=== PATIENT | male | born 1960 | race Caucasian/White ===

== ENCOUNTER 2021-08-30 14:57 | Observation (INO) | payer OTHER ==
[2021-08-30] MEDS ORDERED: SODIUM CHLORIDE 0.9% 1,000 ML IV STA (16:56)
[2021-08-30] MEDS ORDERED: ALBUTEROL NEBULIZED 2.5 MG/3 ML INHALATION STA (16:57)
[2021-08-30] MEDS ORDERED: IPRATROPIUM-ALBUTEROL 3 ML NEB INHALATION STA (16:57)
--- NOTE | 2021-08-30 17:07 | ED ---
General Adult HPI - General Chief complaint: Dizziness Stated complaint: dizziness, lightheaded Time Seen by Provider: 08/30/21 16:44 Source: patient, RN notes reviewed, old records reviewed Mode of arrival: wheelchair Limitations: no limitations - History of Present Illness Initial comments: 61-year-old male history diabetes on insulin and metformin presenting for evaluation of lightheadedness, generalized weakness. He has had some mild dyspnea and cough. He is a current smoker. He has had very dark urine over the past one week. He states he has been drinking but not eating very well. No significant alcohol. No central chest pain. He has some nausea without vomiting or abdominal pain. - Related Data Home Medications Medication Instructions Recorded Confirmed Aspirin EC [Ecotrin Low Dose] 81 mg PO DAILY 08/30/21 08/30/21 Atorvastatin [Lipitor] 40 mg PO HS 08/30/21 08/30/21 Insulin NPH Human Isophane 22 units SQ DAILY 08/30/21 08/30/21 [NovoLIN N] Insulin NPH Human Isophane 30 units SQ HS 08/30/21 08/30/21 [NovoLIN N] lisinopriL [Zestril] 5 mg PO DAILY 08/30/21 08/30/21 metFORMIN HCL [Glucophage] 1,000 mg PO BID 08/30/21 08/30/21 Allergies Allergy/AdvReac Type Severity Reaction Status Date / Time acetaminophen [From [place]] AdvReac Nausea & Verified 08/30/21 18:20 Vomiting hydrocodone [From [place]] AdvReac Nausea & Verified 08/30/21 18:20 Vomiting Penicillins AdvReac Nausea Verified 08/30/21 18:20 Review of Systems ROS Statement: Those systems with pertinent positive or pertinent negative responses have been documented in the HPI. ROS Other: All systems not noted in ROS Statement are negative. Past Medical History Past Medical History: Diabetes Mellitus History of Any Multi-Drug Resistant Organisms: None Reported Past Surgical History: No Surgical Hx Reported Past Psychological History: No Psychological Hx Reported Smoking Status: Current every day smoker Past Alcohol Use History: None Reported, Daily Past Drug Use History: None Reported General Exam Limitations: no limitations General appearance: alert, in no apparent distress Head exam: Present: atraumatic, normocephalic Eye exam: Present: normal appearance, PERRL ENT exam: Present: mucous membranes dry Neck exam: Present: normal inspection. Absent: tenderness, meningismus Respiratory exam: Present: wheezes. Absent: respiratory distress Cardiovascular Exam: Present: regular rate, normal rhythm GI/Abdominal exam: Present: soft. Absent: distended, tenderness, guarding Extremities exam: Present: normal inspection, normal capillary refill. Absent: pedal edema, calf tenderness Neurological exam: Present: alert, oriented X3, CN II-XII intact. Absent: motor sensory deficit Psychiatric exam: Present: normal affect, normal mood Skin exam: Present: warm, dry, intact. Absent: cyanosis, diaphoretic Course Vital Signs 08/30/21 08/30/21 08/30/21 15:47 17:21 17:33 Temperature 98.5 F Pulse Rate 92 85 84 Respiratory 16 Rate Blood Pressure 72/48 O2 Sat by Pulse 93 L Oximetry - Reevaluation(s) Reevaluation #1: 08/30/21 19:00 UA pending. EKG Findings - EKG Comments: EKG Findings:: EKG: Sinus rhythm PVC rate of 90, DE interval 155, QRS duration 84, QTC 377. Medical Decision Making - Medical Decision Making 60-year-old male presenting with lightheadedness, initial blood pressures in the 70 systolic. He has dry mucous membranes. He states he has been drinking but has not been eating well. He denies alcohol. He denies chest pain. He states he's had very dark urine and some dysuria. Laboratory studies reveal normal CBC, a I, Mild Lactic Acidosis. Urinalysis Pending. Patient's Blood Pressure Does Respond to Initial Liter and Then Subsequently Is in the 80 Systolic. He Will Require Second Liter Hydration. He Will Be Admitted for Close Monitoring of Hypotension, Volume Resuscitation and Evaluation of CAD. Case Discussed with [facility]. - Lab Data Result diagrams: 08/30/21 17:02 08/30/21 17:02 Lab Results 08/30/21 08/30/21 08/30/21 Range/Units 17:02 17:02 17:02 WBC 9.7 (3.8-10.6) k/uL RBC 5.20 (4.30-5.90) m/uL Hgb 16.5 (13.0-17.5) gm/dL Hct 47.5 (39.0-53.0) % MCV 91.3 (80.0-100.0) fL MCH 31.7 (25.0-35.0) pg MCHC 34.7 (31.0-37.0) g/dL RDW 14.0 (11.5-15.5) % Plt Count 140 L (150-450) k/uL MPV 7.9 Neutrophils % 79 % Lymphocytes % 10 % Monocytes % 6 % Eosinophils % 2 % Basophils % 1 % Neutrophils # 7.6 (1.3-7.7) k/uL Lymphocytes # 1.0 (1.0-4.8) k/uL Monocytes # 0.6 (0-1.0) k/uL Eosinophils # 0.2 (0-0.7) k/uL Basophils # 0.1 (0-0.2) k/uL Sodium 131 L (137-145) mmol/L Potassium 4.2 (3.5-5.1) mmol/L Chloride 93 L (98-107) mmol/L Carbon Dioxide 27 (22-30) mmol/L Anion Gap 11 mmol/L BUN 30 H (9-20) mg/dL Creatinine 2.12 H (0.66-1.25) mg/dL Est GFR (CKD-EPI)AfAm 37 (>60 ml/min/1.73 sqM) Est GFR (CKD-EPI)NonAf 32 (>60 ml/min/1.73 sqM) Glucose 114 H (74-99) mg/dL Plasma Lactic Acid Julian 2.5 H* (0.7-2.0) mmol/L Calcium 9.1 (8.4-10.2) mg/dL Magnesium 1.9 (1.6-2.3) mg/dL Total Bilirubin 1.7 H (0.2-1.3) mg/dL AST 58 (17-59) U/L ALT 69 H (4-49) U/L Alkaline Phosphatase 123 (38-126) U/L Troponin I (0.000-0.034) ng/mL Total Protein 7.4 (6.3-8.2) g/dL Albumin 4.4 (3.5-5.0) g/dL 08/30/21 Range/Units 17:02 WBC (3.8-10.6) k/uL RBC (4.30-5.90) m/uL Hgb (13.0-17.5) gm/dL Hct (39.0-53.0) % MCV (80.0-100.0) fL MCH (25.0-35.0) pg MCHC (31.0-37.0) g/dL RDW (11.5-15.5) % Plt Count (150-450) k/uL MPV Neutrophils % % Lymphocytes % % Monocytes % % Eosinophils % % Basophils % % Neutrophils # (1.3-7.7) k/uL Lymphocytes # (1.0-4.8) k/uL Monocytes # (0-1.0) k/uL Eosinophils # (0-0.7) k/uL Basophils # (0-0.2) k/uL Sodium (137-145) mmol/L Potassium (3.5-5.1) mmol/L Chloride (98-107) mmol/L Carbon Dioxide (22-30) mmol/L Anion Gap mmol/L BUN (9-20) mg/dL Creatinine (0.66-1.25) mg/dL Est GFR (CKD-EPI)AfAm (>60 ml/min/1.73 sqM) Est GFR (CKD-EPI)NonAf (>60 ml/min/1.73 sqM) Glucose (74-99) mg/dL Plasma Lactic Acid Julian (0.7-2.0) mmol/L Calcium (8.4-10.2) mg/dL Magnesium (1.6-2.3) mg/dL Total Bilirubin (0.2-1.3) mg/dL AST (17-59) U/L ALT (4-49) U/L Alkaline Phosphatase (38-126) U/L Troponin I <0.012 (0.000-0.034) ng/mL Total Protein (6.3-8.2) g/dL Albumin (3.5-5.0) g/dL Disposition Clinical Impression: Dehydration, KOBE (acute kidney injury) Disposition: ADMITTED IP TO THIS [facility] Condition: Stable Is patient prescribed a controlled substance at d/c from ED?: No Referrals: Nonstaff,Physician [Primary Care Provider] - 1-2 days Time of Disposition: 19:02
[2021-08-30 17:18] LABS: Basophils # (A) 0.1 k/uL (0-0.2); Basophils % (A) 1 %; Eosinophils # (A) 0.2 k/uL (0-0.7); Eosinophils % (A) 2 %; HCT 47.5 % (39.0-53.0); HGB 16.5 gm/dL (13.0-17.5); Lymphocytes % (A) 10 %; MCH 31.7 pg (25.0-35.0); MCHC 34.7 g/dL (31.0-37.0); MCV 91.3 fL (80.0-100.0); Mean Platelet Volume 7.9; Monocytes # (A) 0.6 k/uL (0-1.0); Monocytes % (A) 6 %; Neutrophils # (A) 7.6 k/uL (1.3-7.7); Neutrophils % (A) 79 %; Platelet Count 140 k/uL (150-450); WBC 9.7 k/uL (3.8-10.6)
[2021-08-30 17:32] LABS: Albumin 4.4 g/dL (3.5-5.0); Calcium 9.1 mg/dL (8.4-10.2); Magnesium 1.9 mg/dL (1.6-2.3); Potassium 4.2 mmol/L (3.5-5.1); Total Bilirubin 1.7 mg/dL (0.2-1.3); Total Protein 7.4 g/dL (6.3-8.2)
--- NOTE | 2021-08-30 18:22 | XR ---
EXAMINATION TYPE: XR chest 2V DATE OF EXAM: 08/30/2021 6:03 PM COMPARISON: None TECHNIQUE: XR chest 2V Frontal and lateral views of the chest. CLINICAL INDICATION:Male, 61 years old with history of Weakness; FINDINGS: Lungs/Pleura: There is no evidence of pleural effusion, focal consolidation, or pneumothorax. Pulmonary vascularity: Unremarkable. Heart/mediastinum: Cardiomediastinal silhouette is unremarkable. Musculoskeletal: No acute osseous pathology. IMPRESSION: No acute cardiopulmonary disease/process.
[2021-08-30] MEDS ORDERED: SODIUM CHLORIDE 0.9% 1,000 ML IV ONE (18:43)
[2021-08-30] MEDS ORDERED: NALOXONE 0.4 MG/ML 1 ML VIAL IV PRN (18:59)
[2021-08-30] MEDS: SODIUM CHLORIDE 0.9% 1,000 ML IV SCH (19:13)
[2021-08-30 19:59] LABS: INR 1.2 (<1.2); Prothrombin Time 12.7 sec (9.0-12.0)
--- NOTE | 2021-08-31 06:28 | P.HPIM ---
History of Present Illness H&P Date: 08/30/21 The patient is a 61-year-old male with a PMH of type II DM and hypertension who presents to the emergency room with complaints of lightheadedness and overall not feeling well. Patient reports experiencing intermittent lightheadedness over the past 1-2 weeks. Reports not eating or drinking as much as usual during this time. He was not forthcoming with the history and refused to answer most questions, and repeatedly asked to be discharged as soon as possible. Denied experiencing abdominal pain, nausea, vomiting, diarrhea. Also denied recent weight loss, fever, chills, cough, chest pain, shortness of breath. Patient did mention that he has been stressed and feeling down for the past several months due to multiple stressors in his life. Denied suicidal ideation. In the emergency room, EKG revealed sinus rhythm with PVCs and [address]/T-wave changes noted as reviewed by me. Chest x-ray was unremarkable. Laboratory evaluation revealed lactic acidosis of 2.5, platelets 140, BUN 30, creatinine 2.12, troponin less than 0.02.. Review of systems: Pertinent positives and negatives as discussed in HPI, a complete review of systems was performed and all other systems are negative. Physical examination: General: non toxic, no distress, appears at stated age, normal weight Derm: no unusual rashes/lesions no unusual ecchymoses, warm, dry Head: atraumatic, normocephalic, symmetric Eyes: EOMI, no lid lag, anicteric sclera, pupils equal round reactive to light ENT: Nose and ears atraumatic, no thrush, no pharyngeal erythema Neck: No thyromegaly, no cervical lymphadenopathy, trachea midline, supple Mouth: no lip lesion, mucus membranes moist Cardiovascular: S1S2 reg, no murmur, positive posterior tibial pulse bilateral, no edema, capillary refill less than 2 seconds Lungs: CTA bilateral, no rhonchi, no rales , no accessory muscle use Abdominal: soft, nontender to palpation, no guarding, no appreciable organomegaly, normal bowel sounds Ext: no gross muscle atrophy, muscle strength 5 out of 5 in all 4 extremities grossly, no contractures, Neuro: CN II-XI grossly intact, light touch intact all 4 extremities, finger to nose within normal limits, Psych: Alert, oriented, appropriate affect Assessment/plan Hypotension, KOBE, likely due to dehydration from poor oral intake -Continue with IV fluids -Monitor BMP Poor oral intake, possible depression -Psychiatry consult Chronic conditions: Type II DM, hypertension -Insulin sliding scale and blood glucose monitoring -Home antihypertensives in setting of borderline BP DVT prophylaxis -Heparin subcu The patient is admitted with an anticipated less than 2 midnight stay for evaluation of hypotension. CODE STATUS: Full code Discussed with: Patient Anticipated discharge date: In a.m. Anticipated discharge place: Home Past Medical History Past Medical History: Diabetes Mellitus History of Any Multi-Drug Resistant Organisms: None Reported Past Surgical History: No Surgical Hx Reported Past Psychological History: No Psychological Hx Reported Smoking Status: Current every day smoker Past Alcohol Use History: None Reported, Daily Past Drug Use History: None Reported Medications and Allergies Home Medications Medication Instructions Recorded Confirmed Type Aspirin EC [Ecotrin Low Dose] 81 mg PO DAILY 08/30/21 08/30/21 History Atorvastatin [Lipitor] 40 mg PO HS 08/30/21 08/30/21 History Insulin NPH Human Isophane 22 units SQ DAILY 08/30/21 08/30/21 History [NovoLIN N] Insulin NPH Human Isophane 30 units SQ HS 08/30/21 08/30/21 History [NovoLIN N] lisinopriL [Zestril] 5 mg PO DAILY 08/30/21 08/30/21 History metFORMIN HCL [Glucophage] 1,000 mg PO BID 08/30/21 08/30/21 History Allergies Allergy/AdvReac Type Severity Reaction Status Date / Time acetaminophen [From [place]] AdvReac Nausea & Verified 08/30/21 18:20 Vomiting hydrocodone [From [place]] AdvReac Nausea & Verified 08/30/21 18:20 Vomiting Penicillins AdvReac Nausea Verified 08/30/21 18:20 Physical Exam Vitals: Vital Signs Temp Pulse Resp BP Pulse Ox 08/30/21 19:30 86 16 78/50 08/30/21 19:07 86 18 83/48 98 08/30/21 17:33 84 08/30/21 17:21 85 08/30/21 15:47 98.5 F 92 16 72/48 93 L Intake and Output 08/30/21 08/30/21 08/30/21 06:59 14:59 22:59 Other: Weight 86.183 kg Results CBC & Chem 7: 08/30/21 17:02 08/30/21 17:02 Labs: Abnormal Lab Results - Last 24 Hours (Table) 08/30/21 08/30/21 08/30/21 Range/Units 17:02 17:02 17:02 Plt Count 140 L (150-450) k/uL PT (9.0-12.0) sec INR (<1.2) Sodium 131 L (137-145) mmol/L Chloride 93 L (98-107) mmol/L BUN 30 H (9-20) mg/dL Creatinine 2.12 H (0.66-1.25) mg/dL Glucose 114 H (74-99) mg/dL Plasma Lactic Acid Julian 2.5 H* (0.7-2.0) mmol/L Total Bilirubin 1.7 H (0.2-1.3) mg/dL ALT 69 H (4-49) U/L 08/30/21 Range/Units 19:35 Plt Count (150-450) k/uL PT 12.7 H (9.0-12.0) sec INR 1.2 H (<1.2) Sodium (137-145) mmol/L Chloride (98-107) mmol/L BUN (9-20) mg/dL Creatinine (0.66-1.25) mg/dL Glucose (74-99) mg/dL Plasma Lactic Acid Julian (0.7-2.0) mmol/L Total Bilirubin (0.2-1.3) mg/dL ALT (4-49) U/L
[2021-08-31 07:20] LABS: Glucose,Whole Blood 88 mg/dL (75-99)
[2021-08-31] MEDS: INSULIN ASPART (NovoLOG) 100 UNIT/ML VIAL SQ SCH ×4 (07:27→20:28)
[2021-08-31] MEDS: SODIUM CHLORIDE 0.9% 1,000 ML IV SCH ×3 (07:27→19:14)
[2021-08-31] MEDS ORDERED: lisinopriL 5 MG TAB PO SCH (09:00)
[2021-08-31] MEDS: ASPIRIN 81 MG PO SCH (09:04)
--- NOTE | 2021-08-31 09:58 | P.CN ---
Psychiatric Consult - . Consult date: 08/31/21 Consult:: 08/31/21 09:51 This is a psychiatric evaluation on Edinson Suarez who is a 61-year-old male and was admitted to the ER for observation Following is an abstract from the ER assessment done yesterday: The patient is a 61-year-old male with a PMH of type II DM and hypertension who presents to the emergency room with complaints of lightheadedness and overall not feeling well. Patient reports experiencing intermittent lightheadedness over the past 1-2 weeks. Reports not eating or drinking as much as usual during this time. He was not forthcoming with the history and refused to answer most questions, and repeatedly asked to be discharged as soon as possible. Denied experiencing abdominal pain, nausea, vomiting, diarrhea. Also denied recent weight loss, fever, chills, cough, chest pain, shortness of breath. Patient did mention that he has been stressed and feeling down for the past several months due to multiple stressors in his life. Denied suicidal ideation. In the emergency room, EKG revealed sinus rhythm with PVCs and [address]/T-wave changes noted as reviewed by me. Chest x-ray was unremarkable. Laboratory evaluation revealed lactic acidosis of 2.5, platelets 140, BUN 30, creatinine 2.12, troponin less than 0.02.. 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 He states that he dwells to ride around in his [place] and has covered over 15,000 miles on his [place] He admits to drinking 3 or 4 shots of high concentrated liquor on a daily basis Patient admits that he does not take care of himself too well and that continues to improve on his lifestyle He admits that he may have a problem with alcohol although he does not crave for it but that it is part of the lifestyle The denies going through any substance abuse program in the past although he has been to some AA meetings on his own Mental status examination: Reveals a middle-aged male who currently appears in no acute physical distress Patient was pleasant and cooperative Speech is clear coherent and relevant Patient is dressed and high boots as well as was proud to show his [place] shirt and jacket Patient's thought processes are goal-directed sequential and logical Patient denies any suicidal or homicidal ideations Formal and operational judgment are fair Insight and his problem however appears to be partial Problem solving ability appears to be fair Diagnostic impression: Adjustment disorder with mixed emotional features Mood disorder most likely related to alcohol abuse Alcohol use disorder chronic Rule out chronic grief reaction Plan: Patient is a good candidate for referral to outpatient substance abuse program as well as other psychosocial services like alcoholic anonymous Would also recommend starting the patient on Zoloft 50 mg daily to start with and to be further titrated by his psychiatrist or PCP 2 also recommend starting the patient on naltrexone 50 mg a day Thank you very much for your kind referral and please feel free to contact me if any further questions Michael Morris M.D. /
[2021-08-31 12:01] LABS: ALT 70 U/L (4-49); AST 69 U/L (17-59); African American GFR (CKD) 61 (>60 ml/min/1.73 sqM); Albumin 3.7 g/dL (3.5-5.0); Albumin/Globulin Ratio 1.3; Alkaline Phosphatase 138 U/L (38-126); Anion Gap 8 mmol/L; Blood Urea Nitrogen 26 mg/dL (9-20); Calcium 8.4 mg/dL (8.4-10.2); Carbon Dioxide 27 mmol/L (22-30); Chloride 99 mmol/L (98-107); Globulin 2.8 g/dL; Glucose 96 mg/dL (74-99); Non-African American GFR(CKD) 53 (>60 ml/min/1.73 sqM); Potassium 3.9 mmol/L (3.5-5.1); Sodium 134 mmol/L (137-145); Total Bilirubin 2.8 mg/dL (0.2-1.3); Total Protein 6.5 g/dL (6.3-8.2)
[2021-08-31 12:24] LABS: Glucose,Whole Blood 86 mg/dL (75-99)
--- NOTE | 2021-08-31 13:52 | P.PN ---
Subjective Progress Note Date: 08/31/21 Principal diagnosis: dehydration Patient is asking to go home. When asked why he is not eating and drinking he states that ''because he doesn't feel like it''. Denies pain or shortness of breath. No fevers. Objective - Vital Signs Vital signs: Vital Signs Temp 100.3 F H 08/31/21 12:18 Pulse 100 08/31/21 12:18 Resp 18 08/31/21 12:18 BP 180/68 08/31/21 12:18 Pulse Ox 96 08/31/21 12:18 Intake & Output 08/30/21 08/31/21 08/31/21 18:59 06:59 18:59 Weight 86.183 kg 86.183 kg - Exam Constitutional: No acute distress, conversant, pleasant Eyes:Anicteric sclerae, moist conjunctiva, no lid-lag, PERRLA, ENMT: Oropharynx clear, no erythema, exudates Neck: Supple, FROM, no masses, or JVD, No carotid bruits, No thyromegaly Lungs: Clear to auscultation, Clear to percussion, Normal respiratory effort, no accessory muscle use Cardiovascular: Heart regular in rate and rhythm, No murmurs, gallops, or rubs, No peripheral edema Abdominal: Soft, Nontender, no guarding, rebound or rigidity, Normoactive bowel sounds, No hepatomegaly, No splenomegaly, No palpable mass Skin: Normal temperature, tone, texture, turgor, no induration, No subcutaneous nodules, No rash, lesions, No ulcers Extremities: No digital cyanosis, No clubbing, Pedal pulses intact and symmetrical, Radial pulses intact and symmetrical, No calf tenderness Psychiatric: Alert and oriented to person, place and time, appropriate affect, intact judgement Neuro: Muscles Strength 5/5 in all 4 extremities, Sensation to light touch grossly present throughout, Cranial nerves II-XII grossly intact, no focal sensory deficits - Labs CBC & Chem 7: 08/30/21 17:02 08/31/21 11:35 Labs: Abnormal Lab Results - Last 24 Hours (Table) 08/30/21 08/30/21 08/30/21 Range/Units 17:02 17:02 17:02 Plt Count 140 L (150-450) k/uL PT (9.0-12.0) sec INR (<1.2) Sodium 131 L (137-145) mmol/L Chloride 93 L (98-107) mmol/L BUN 30 H (9-20) mg/dL Creatinine 2.12 H (0.66-1.25) mg/dL Glucose 114 H (74-99) mg/dL Plasma Lactic Acid Julian 2.5 H* (0.7-2.0) mmol/L Total Bilirubin 1.7 H (0.2-1.3) mg/dL AST (17-59) U/L ALT 69 H (4-49) U/L Alkaline Phosphatase (38-126) U/L 08/30/21 08/31/21 Range/Units 19:35 11:35 Plt Count (150-450) k/uL PT 12.7 H (9.0-12.0) sec INR 1.2 H (<1.2) Sodium 134 L (137-145) mmol/L Chloride (98-107) mmol/L BUN 26 H (9-20) mg/dL Creatinine 1.42 H (0.66-1.25) mg/dL Glucose (74-99) mg/dL Plasma Lactic Acid Julian (0.7-2.0) mmol/L Total Bilirubin 2.8 H (0.2-1.3) mg/dL AST 69 H (17-59) U/L ALT 70 H (4-49) U/L Alkaline Phosphatase 138 H (38-126) U/L Assessment and Plan Plan: Hypotension, KOBE, likely due to dehydration from poor oral intake -Continue with IV fluids -Monitor BMP -Improved Poor oral intake, possible depression -Psychiatry consulted, recommending starting Zoloft. Alcohol abuse -We'll start naltrexone per psychiatry. -Patient will benefit from outpatient substance abuse referral. Chronic conditions: Type II DM, hypertension -Insulin sliding scale and blood glucose monitoring -Home antihypertensives in setting of borderline BP DVT prophylaxis -Heparin subcu CODE STATUS: Full code Discussed with: Patient Anticipated discharge date: In a.m. Anticipated discharge place: Home
[2021-08-31 17:40] LABS: Glucose,Whole Blood 102 mg/dL (75-99)
[2021-08-31 20:16] LABS: Glucose,Whole Blood 143 mg/dL (75-99)
[2021-08-31] MEDS: NICOTINE 14MG/24HR PATCH TRANSDERM SCH (20:27)
[2021-08-31] MEDS ORDERED: ATORVASTATIN 40 MG TAB PO SCH (21:00)
[2021-09-01] MEDS: SODIUM CHLORIDE 0.9% 1,000 ML IV SCH (01:48)
[2021-09-01] MEDS ORDERED: ACETAMINOPHEN TAB 325 MG TAB PO STA (02:23)
[2021-09-01 06:44] LABS: Glucose,Whole Blood 116 mg/dL (75-99)
[2021-09-01 07:12] LABS: African American GFR (CKD) 74 (>60 ml/min/1.73 sqM); Anion Gap 9 mmol/L; Blood Urea Nitrogen 21 mg/dL (9-20); Calcium 8.5 mg/dL (8.4-10.2); Carbon Dioxide 29 mmol/L (22-30); Chloride 96 mmol/L (98-107); Glucose 124 mg/dL (74-99); Non-African American GFR(CKD) 64 (>60 ml/min/1.73 sqM); Potassium 3.9 mmol/L (3.5-5.1); Sodium 134 mmol/L (137-145)
[2021-09-01] MEDS: INSULIN ASPART (NovoLOG) 100 UNIT/ML VIAL SQ SCH ×2 (07:16→12:43)
[2021-09-01 08:00] LABS: Glucose,Whole Blood 140 mg/dL (75-99)
[2021-09-01 08:20] VITALS: BP 101/64; PULSE 106; RESP 16
[2021-09-01] MEDS: ASPIRIN 81 MG PO SCH (08:34)
[2021-09-01] MEDS: NICOTINE 14MG/24HR PATCH TRANSDERM SCH (08:35)
[2021-09-01 11:14] LABS: Amorphous Sediment,Urine Rare /hpf; Appearance,Urine Clear (Clear); Bilirubin,Urine 1+ (Negative); Blood,Urine Small (Negative); Color,Urine Orange; Glucose,Urine (UA) Negative (Negative); Ketones,Urine Trace (Negative); Leukocyte Esterase,Urine Negative (Negative); Mucus,Urine Occasional /hpf; Nitrite,Urine Negative (Negative); Protein,Urine 1+ (Negative); RBC,Urine 1 /hpf (0-5); Specific Gravity,Urine 1.023 (1.001-1.035); Squamous Epithelial Cell,Urine <1 /hpf (0-4); Urobilinogen,Urine >12.0 mg/dL (<2.0); WBC,Urine 2 /hpf (0-5)
[2021-09-01 11:57] VITALS: TEMP 98.2
[2021-09-01 12:09] LABS: Glucose,Whole Blood 179 mg/dL (75-99)
--- NOTE | 2021-09-01 12:21 | P.DS ---
Providers Date of admission: 08/31/21 12:06 Expected date of discharge: 09/01/21 Attending physician: Jacqueline Ramírez MD Consults: 08/31/21 06:26 Consult Physician Urgent Consulting Provider: Wilson Warren Consult Reason/Comments: depression Do you want consulting provider notified?: Yes Primary care physician: Physician Nonstaff Hospital Course: 61-year-old male with a PMH of type II DM and hypertension who presents to the emergency room with complaints of lightheadedness and overall not feeling well. Patient reports experiencing intermittent lightheadedness over the past 1-2 weeks. Reports not eating or drinking as much as usual during this time. He was not forthcoming with the history and refused to answer most questions, and repeatedly asked to be discharged as soon as possible. Denied experiencing abdominal pain, nausea, vomiting, diarrhea. Also denied recent weight loss, fever, chills, cough, chest pain, shortness of breath. Patient did mention that he has been stressed and feeling down for the past several months due to multiple stressors in his life. Denied suicidal ideation. In the emergency room, EKG revealed sinus rhythm with PVCs and [address]/T-wave changes noted as reviewed by me. Chest x-ray was unremarkable. Laboratory evaluation revealed lactic acidosis of 2.5, platelets 140, BUN 30, creatinine 2.12, troponin less than 0.02.. Patient was subsequently admitted for further evaluation and management. He was found to be significantly dehydrated on physical exam and according to his labs. He was started on normal saline for hydration. Kidney function improved back to normal. However he started having fevers but also workup for possible infection has been negative including urinalysis, chest x-ray. He did not have a leukocytosis either. Patient was seen by psychiatry, was diagnosed with depression and substance abuse disorder. He was started on Zoloft and naltrexone for alcohol craving. He did not show any signs of alcohol withdrawal while he was hospitalized. He will be discharged in stable condition. He very much insisted on being discharged today. He was instructed to come back to the emergency department if the fever recurs and if it persists. Time for discharge 35 minutes. Patient Condition at Discharge: Stable Plan - Discharge Summary Discharge Rx Participant: No New Discharge Prescriptions: New Naltrexone HCl [Revia] 50 mg PO DAILY 30 Days #30 tablet Sertraline HCl [Zoloft] 25 mg PO DAILY 30 Days #30 tab Continue Insulin NPH Human Isophane [NovoLIN N] 22 units SQ DAILY Atorvastatin [Lipitor] 40 mg PO HS Insulin NPH Human Isophane [NovoLIN N] 30 units SQ HS Aspirin EC [Ecotrin Low Dose] 81 mg PO DAILY metFORMIN HCL [Glucophage] 1,000 mg PO BID lisinopriL [Zestril] 5 mg PO DAILY Discharge Medication List Aspirin EC [Ecotrin Low Dose] 81 mg PO DAILY 08/30/21 [History] Atorvastatin [Lipitor] 40 mg PO HS 08/30/21 [History] Insulin NPH Human Isophane [NovoLIN N] 22 units SQ DAILY 08/30/21 [History] Insulin NPH Human Isophane [NovoLIN N] 30 units SQ HS 08/30/21 [History] lisinopriL [Zestril] 5 mg PO DAILY 08/30/21 [History] metFORMIN HCL [Glucophage] 1,000 mg PO BID 08/30/21 [History] Naltrexone HCl [Revia] 50 mg PO DAILY 30 Days #30 tablet 09/01/21 [Rx] Sertraline HCl [Zoloft] 25 mg PO DAILY 30 Days #30 tab 09/01/21 [Rx] Follow up Appointment(s)/Referral(s): Nonstaff,Physician [Primary Care Provider] - 1-2 days Activity/Diet/Wound Care/Special Instructions: FOLLOW UP DIRECTED, SOONER FOR WORSENING PROBLEMS OR CONCERNS.
--- NOTE | 2021-09-01 12:29 | XR ---
EXAMINATION TYPE: XR chest 1V portable DATE OF EXAM: 09/01/2021 Comparison: 08/30/2021 Clinical History: 61 year-old male fever Findings: Heart normal size. Aorta within normal limits. Mild interstitial prominence is unchanged. Mild patchy density at the left base. Impression: Some mild patchy density at the periphery of the left base now noted. This could represent atelectasi s or developing pneumonia.
== END 2021-09-01 12:45 | disposition home or self-care (01) ==
LOC: EC 14:57 → 6NMEDSUR 18:59 → OBSVTOIN 08-31 12:06 → INTOOBSV 08-31 12:06 → UNDODISIN 09-01 12:45
PROVIDERS: ADMIT Family Medicine; ATTEND Family Medicine
DX: N17.9 Acute kidney failure, unspecified (principal); E87.2 Acidosis; E11.9 Type 2 diabetes mellitus without complications; I10 Essential (primary) hypertension; I25.10 Atherosclerotic heart disease of native coronary artery without angina pectoris; E86.0 Dehydration; F17.210 Nicotine dependence, cigarettes, uncomplicated; Z20.822 Contact with and (suspected) exposure to COVID-19; I95.9 Hypotension, unspecified; F43.23 Adjustment disorder with mixed anxiety and depressed mood; F39 Unspecified mood [affective] disorder; F32.A Depression, unspecified; I49.3 Ventricular premature depolarization; Z79.4 Long term (current) use of insulin; Z79.82 Long term (current) use of aspirin; Z79.84 Long term (current) use of oral hypoglycemic drugs; Z79.899 Other long term (current) drug therapy; Z88.5 Allergy status to narcotic agent; Z88.0 Allergy status to penicillin; Z88.6 Allergy status to analgesic agent; Z72.89 Other problems related to lifestyle; Z71.41 Alcohol abuse counseling and surveillance of alcoholic
CPT/HCPCS: 99285; 96360; 96361 ×2; 36415; 94640; 93005; 80053 ×2; 80048; 83605; 83735; 84484; 85025; 85610; 85730; 81001; 87040; 87635; 71045; 71046; G0378 ×3; S4990